=== PATIENT | male | born 1990 | race Caucasian/White ===

== ENCOUNTER 2024-12-31 06:52 | Emergency (ER) | payer BC, SELFPAY ==
[2024-12-31 06:54] VITALS: BMI 31.1
[2024-12-31 06:55] VITALS: BP 144/94; PULSE 111; RESP 19; O2SAT 98
[2024-12-31 06:58] VITALS: TEMP 36.6
--- NOTE | 2024-12-31 07:02 | XR_ITS ---
Examination: CT abdomen and pelvis without contrast. Coronal 3-D reconstructions. Sagittal 2-D reconstructions. Date and time of exam:December 31, 2024, 0730 hours INDICATIONS: Generalized abdominal pain and vomiting beginning today COMPARISON: November 16, 2022 CTDI: vol (mGy): 9.86 DLP: (mGycm): 613 Technique: Axial images of the abdomen have been obtained, 3 mm slice thickness Intravenous contrast material has not been administered. Low dose protocols were performed. One or more of the following dose reduction techniques were used; automated exposure control, adjustment of the mA and/or KV according to patient size, use of iterative reconstruction technique. Findings: No focal liver or splenic lesions Contracted gallbladder No pancreatic or adrenal mass The colon shows diffuse wall thickening and fatty replacement in the vanessa Normal appendix No bowel obstruction No diverticulitis Normal seminal vesicles Contracted urinary bladder. Mild renal parenchymal scar formation The osseous structures are intact IMPRESSION: Findings consistent with multiple prior episodes of diffuse nonspecific colitis Normal appendix No bowel obstruction No renal or ureteral calculi, no hydronephrosis
--- NOTE | 2024-12-31 07:13 | EDNOTE_ITS ---
<Statement entered by Isatu Anderson MD - 12/31/24 17:33> As co-signing physician, I was present and available for consult prn. I concur with the plan and care as documented by the midlevel provider. ED Abdominal Pain RME/HPI General Chief Complaint: Abdominal Pain Stated complaint: ABD PAIN Time seen by provider: 12/31/24 06:57 Arrival date/time: 12/31/24 06:52 34-year-old male with no known medical history presents to the emergency room with a chief complaint of diffuse abdominal pain x 3 weeks Source: patient Mode of arrival: ambulatory Limitations: no limitations Related Data Previous Rx's ?Medication ?Instructions ?Recorded prochlorperazine 25 mg rectal 25 mg FL Q12H PRN nausea and 04/28/21 suppository (Compazine) vomiting #12 ea aluminum-mag hydroxide-simethicone 5 ml PO Q3H PRN dys pepsia #355 mL 01/02/22 200 mg-200 mg-20 mg/5 mL oral susp (Maalox Advanced) hyoscyamine sulfate 0.125 mg 0.125 mg PO QID #30 tabs 01/02/22 sublingual tablet hydrocodone 5 mg-acetaminophen 325 1 tab PO Q6H PRN pa in #14 tabs 11/16/22 mg tablet omeprazole 40 mg capsule,delayed 40 mg PO QDAY #30 cap s 11/16/22 release ondansetron 8 mg disintegrating 8 mg PO Q6HR PRN nause a and 11/16/22 tablet vomiting #20 tabs ondansetron 4 mg disintegrating 4 mg PO Q8H PRN nausea and 12/31/24 tablet vomiting #14 tabs Allergies Allergy/AdvReac Type Severity Reaction Status Date / Time No Known Allergies Allergy Verified 12/31/24 06:53 Review of Systems Review of Systems Systems Reviewed: All systems reviewed, normal except as documented Constitutional Constitutional: Reports system reviewed and no additional complaints, except as documented, Denies fatigue, Denies fever(s), Denies headache(s) and Denies weakness Eyes Eyes: Reports system reviewed and no additional complaints, except as documented, Denies blurry vision and Denies change in vision ENT Ears, Nose, Mouth, and Throat: Reports system reviewed and no additional complaints, except as documented, Denies otalgia, Denies headache(s), Denies nasal congestion, Denies throat swelling and Denies vertigo Cardiovascular Cardiovascular: Reports system reviewed and no additional complaints, except as documented, Denies chest pain, Denies dyspnea and Denies dyspnea on exertion Respiratory Respiratory: Reports system reviewed and no additional complaints, except as documented, Denies chest congestion, Denies cough, Denies dyspnea, Denies dyspnea on exertion and Denies wheezing Gastrointestinal Gastrointestinal: Reports system reviewed and no additional complaints, except as documented, Reports abdominal pain, Reports cramping, Reports nausea and Reports vomiting Genitourinary Genitourinary: Reports system reviewed and no additional complaints, except as documented, Denies dysuria and Denies hematuria Musculoskeletal Musculoskeletal: Reports system reviewed and no additional complaints, except as documented and Denies back pain Integumentary/Breasts Skin/Breast: Reports system reviewed and no additional complaints, except as documented and Denies wounds Neurologic Neurologic: Reports system reviewed and no additional complaints, except as documented, Denies confusion, Denies headache(s), Denies lack of coordination, Denies vertigo and Denies weakness Psychiatric Psychiatric: Reports system reviewed and no additional complaints, except as documented, Denies anxiety, Denies confusion, Denies depression, Denies paranoia, Denies suicidal ideation and Denies tactile hallucinations Endocrine Endocrine: Reports system reviewed and no additional complaints, except as documented and Denies fatigue Hematologic/Lymphatic Hematologic/Lymphatic: Reports system reviewed and no additional complaints, except as documented and Denies lymphadenopathy Allergic/Immunologic Allergic/Immunologic: Reports system reviewed and no additional complaints, except as documented, Denies throat swelling, Denies urticaria and Denies wheezi ng ED Exam General Limitations: Present no limitations General appearance: Present alert and in no apparent distress Head Head exam: Present atraumatic Eye Eye exam: Present normal appearance, PERRL and EOMI ENT ENT exam: Present normal exam, normal oropharynx and mucous membranes moist Neck Neck exam: Present normal inspection, full ROM and trachea midline Chest Chest inspection: Present normal inspection and symmetric chest wall rise Respiratory Respiratory exam: Present normal lung sounds bilaterally Cardiovascular Cardiovascular exam: Present regular rate, normal rhythm and normal heart sounds Abdominal Exam Abdominal exam: Present soft, tenderness and normal bowel sounds; Absent distention, guarding, rebound or rigidity Abdominal tenderness: Present epigastrium and moderate Extremities Exam Extremities exam: Present normal inspection and full ROM Back Exam Back exam: Present normal inspection and full ROM Neurological Exam Neurological exam: Present alert, oriented X3 and CN II-XII intact Psychiatric Psychiatric exam: Present normal affect and normal mood Skin Skin exam: Present warm, dry, intact and normal color Course Quality Measures none Orders Category Date Time Status IV [Insert IV] NOW Care 12/31/24 08:[address] abdomen pelvis wo con Stat Exams 12/31/24 07:02 Completed CBC Stat Lab 12/31/24 08:36 Completed CMP [Comprehensive Metabolic Panel] Stat Lab 12/31/24 08:36 Completed Drug Screen,Urine Stat Lab 12/31/24 07:11 Completed Lipase Stat Lab 12/31/24 08:36 Completed UA [Urinalysis] Stat Lab 12/31/24 07:11 Completed Urine Culture Stat Lab 12/31/24 07:11 Received HYDROcodone*/APAP 5/325 [[place] 5/325] Med 12/31/24 07:02 Discontinued 1 tab PO X1 ONE Metoclopramide Inj [Reglan Inj] Med 12/31/24 08:17 Discontinued 10 mg IVP X1 ONE Metoclopramide [Reglan] Med 12/31/24 07:03 Discontinued 10 mg PO X1 ONE Morphine Inj Med 12/31/24 09:32 Discontinued 4 mg IVP X1 ONE Ondansetron Inj [Zofran Inj] Med 12/31/24 09:32 Discontinued 4 mg IVP X1 ONE Ondansetron Odt [Zofran Odt] Med 12/31/24 07:02 Discontinued 4 mg PO X1 ONE Sodium Chloride 0.9% 1000 ml [Ns] 1,000 ml Med 12/31/24 08:17 Discontinued IV 999 mls/hr mg Hyd/Al Hyd/Radha Susp [Maalox Susp] Med 12/31/24 07:02 Discontinued 30 ml PO X1 ONE Vital Signs Vital signs: Vital Signs Pulse Rate 111 H 12/31/24 06:55 Respiratory Rate 19 12/31/24 06:55 Blood Pressure 144/94 H 12/31/24 06:55 Pulse Oximetry (%) 98 12/31/24 06:55 Oxygen Delivery Method Room Air 12/31/24 06:55 O2 saturation 98% within normal limits Abdominal Pain MDM MDM Narrative MDM Narrative:: 34-year-old male with no known medical history presents to the emergency room with a chief complaint of diffuse abdominal pain x 3 weeks Patient is hemodynamically stable and in no apparent distress. He is afebrile not tachycardic not tachypneic Physical examination shows some diffuse abdominal pain. There is no tenderness to McBurney's point and there is a negative Acosta sign CT of the abdomen and pelvis was negative for any acute findings. It does fine some colitis patterns CBC CMP are within normal limits. Drug screen shows marijuana Patient was discharged and educated to follow-up with primary care provider in the next 24 to 48 hours and return to the emergency room for any evidence of worsening signs or symptoms Patient data External records reviewed:: [facility] previous records Clinical information provided by:: patient Social determinants that could affect healthcare access:: none Patient has the following chronic illnesses:: No chronic illness How is presenting disease/condition affected by chronic disease/condition?: no chronic disease Evaluation data The following diagnostics were reviewed and interpreted by me:: lab results and radiology exam(s) Lab and/or radiology exams considered but not ordered:: Labs and radiology exams considered and ordered Interpretation Summary: CT abdomen and pelvis-Findings: No focal liver or splenic lesions Contracted gallbladder No pancreatic or adrenal mass The colon shows diffuse wall thickening and fatty replacement in the vanessa Normal appendix No bowel obstruction No diverticulitis Normal seminal vesicles Contracted urinary bladder. Mild renal parenchymal scar formation The osseous structures are intact IMPRESSION: Findings consistent with multiple prior episodes of diffuse nonspecific colitis Normal appendix No bowel obstruction No renal or ureteral calculi, no hydronephrosis Medications / Prescriptions Medications or Prescriptions considered but not ordered:: Medication given Medication administrations:: Medication Administration History Discontinued Medications Hydrocodone Bitart/Acetaminophen (Hydrocodone/Apap 5/325 Tablet) 1 tab PO X1 ONE Stop: 12/31/24 07:03 Last Admin: 12/31/24 08:08 Dose: Not Given Documented By: ADRYAN Non-Admin Reason: Nausea Al Hydrox/Mg Hydrox/Simethicone (Mg Hyd/Al Hyd/Radha (Maalox Reg) Susp 30 Ml Udc) 30 ml PO X1 ONE Stop: 12/31/24 07:03 Last Admin: 12/31/24 07:52 Dose: 30 ml Documented By: ADRYAN Sodium Chloride (Ns) 1,000 mls @ 999 mls/hr IV .Q1H1M ONE Stop: 12/31/24 09:17 Last Infusion: 12/31/24 09:50 Dose: Infused Documented By: Admin: 12/31/24 08:48 Dose: 999 mls/hr Documented By: ADRYAN Metoclopramide HCl (Metoclopramide 5 Mg Tablet) 10 mg PO X1 ONE Stop: 12/31/24 07:04 Last Admin: 12/31/24 08:08 Dose: Not Given Documented By: ADRYAN Non-Admin Reason: Nausea Metoclopramide HCl (Metoclopramide Inj 5 Mg/Ml Vial 2 Ml) 10 mg IVP X1 ONE; Protocol Stop: 12/31/24 08:18 Last Admin: 12/31/24 08:48 Dose: 10 mg Documented By: ADRYAN Morphine Sulfate (Morphine Sulf Inj 10 Mg/Ml Vial) 4 mg IVP X1 ONE Stop: 12/31/24 09:33 Last Admin: 12/31/24 09:41 Dose: 4 mg Documented By: MARK Ondansetron HCl (Ondansetron Odt 4 Mg Tabrap) 4 mg PO X1 ONE; Protocol Stop: 12/31/24 07:03 Last Admin: 12/31/24 08:08 Dose: Not Given Documented By: ADRYAN Non-Admin Reason: Nausea Ondansetron HCl (Ondansetron Inj 2 Mg/Ml Inj 2 Ml) 4 mg IVP X1 ONE; Protocol Stop: 12/31/24 09:33 Last Admin: 12/31/24 09:42 Dose: 4 mg Documented By: MARK Medication given Consultations Consultation(s) initiated? (list below): No Diagnosis Differential diagnosis abdominal pain: abdominal pain, acute appendicitis, constipation, gastroenteritis and other (Cannabinoid hyperemesis syndrome) Most likely diagnosis given after review of the tests above:: Cannabinoid hyperemesis syndrome Admission Indicated Admission indicated?: not indicated Admission Request Was there a request for admission?: No Disposition Plan Disposition Plan: Discharge Discharge Attestation Discharge Attestation: The patient and all family members were given an opportunity to ask questions and understood the discharge instructions. Discharge instructions specifically effects, indications for sooner follow up or return to the emergency department, and the expected course of current diagnosis. Patient condition: Stable Discharge Plan Plan Patient Disposition: HOME (Self Care) Discharge Disposition comment: Stable Prescriptions/Referrals Prescriptions/Med Rec: New ondansetron 4 mg tablet,disintegrating 4 mg PO Q8H PRN (Reason: nausea and vomiting) Qty: 14 0RF No Action hyoscyamine sulfate 0.125 mg tablet, sublingual 0.125 mg PO QID Qty: 30 0RF alum-mag hydroxide-simeth [Maalox Advanced] 200-200-20 mg/5 mL suspension 5 ml PO Q3H PRN (Reason: dyspepsia) Qty: 355 0RF prochlorperazine [Compazine] 25 mg suppository 25 mg FL Q12H PRN (Reason: nausea and vomiting) Qty: 12 0RF ondansetron 8 mg tablet,disintegrating 8 mg PO Q6HR PRN (Reason: nausea and vomiting) Qty: 20 0RF omeprazole 40 mg capsule,delayed release(DR/EC) 40 mg PO QDAY Qty: 30 0RF hydrocodone-acetaminophen 5-325 mg tablet 1 tab PO Q6H MDD 4 PRN (Reason: pain) Qty: 14 0RF Referrals: No Primary/Family,Physician [Primary Care Provider] - In 1 week Problem List Clinical Impression: Cannabinoid hyperemesis syndrome Patient/Caregiver Discharge Instructions Education Materials: ED Vomiting (Adult) Additional Instructions: Please follow-up with your primary care provider in the next [address] scan was negative for any acute findings. Your blood work was negative for any acute findings. Medication was sent to your pharmacy please pick it up and take it as indicated For any evidence of worsening signs or symptoms return to the emergency room immediately Print Language: Maori Stand Alone Forms: Valerie Award Info., Patient Portal Info Letter PA/RADIOLOGY SPECIAL PROCEDURE TECH Supervising Physician PA/RADIOLOGY SPECIAL PROCEDURE TECH Supervising Physician: Dr. ANDERSON
[2024-12-31] MEDS: MG HYD/AL HYD/SIME (Maalox Reg) SUSP 30 ML UDC PO (07:52)
[2024-12-31 07:59] VITALS: BP 151/104; PULSE 82; RESP 17; O2SAT 97
[2024-12-31 08:45] LABS: Basophils # (Auto) 0.1 Thou/mm3 (0.0-0.2); Basophils % (Auto) 1 % (0-2.5); Eosinophils # (Auto) 0.1 Thou/mm3 (0.0-0.5); Eosinophils % (Auto) 1 % (0-10); Hematocrit 44.7 % (41.0-53.0); Hemoglobin 15.7 g/dL (13.5-16.0); Immature Granulocytes Auto 0.04 Thou/mm3 (0.00-0.00); Lymphocytes # (Auto) 2.2 Thou/mm3 (1.0-4.8); Lymphocytes % (Auto) 22 % (10-50); Mean Corpuscular HGB Conc 35.1 g/dl (31.0-37.0); Mean Corpuscular Hemoglobin 29.7 pg (25.0-35.0); Mean Corpuscular Volume 85 fL (80-100); Monocytes # (Auto) 0.7 Thou/mm3 (0.0-0.8); Monocytes % (Auto) 7 % (0-12); Neutrophils # (Auto) 6.9 Thou/mm3 (1.8-7.7); Neutrophils % (Auto) 69 % (37-80); Nucleated Red Blood Cell # 0.00 Thou/mm3 (0.00-0.00); Nucleated Red Blood Cell % 0 /100 WBC (0); Platelet Count 342 Thou/mm3 (140-440); RDW Standard Deviation 39.0 fL (35.1-43.9); Red Blood Count 5.28 Miln/mm3 (4.50-5.90); White Blood Count 10.0 Thou/mm3 (3.8-10.6)
[2024-12-31] MEDS: SODIUM CHLORIDE 0.9% 1000 ML 1,000 ML 999 ML IV (08:48)
[2024-12-31] MEDS: METOCLOPRAMIDE INJ 5 MG/ML VIAL 2 ML 10 MG IVP (08:48)
[2024-12-31 08:50] LABS: Collection Type, Urine Clean Catch; Squamous Epithelial Cell,Urine 0 /hpf (0-5)
[2024-12-31 09:01] VITALS: BP 152/96; PULSE 68; RESP 18; TEMP 36.6; O2SAT 97
[2024-12-31 09:03] LABS: Alanine Aminotransferase 14 U/L (10-49); Albumin, Serum 4.5 gm/dL (3.5-5.0); Albumin/Globulin Ratio 1.5 (1.2-2.2); Alkaline Phosphatase 97 U/L (46-116); Anion Gap 10 (7-16); Aspartate Amino Transferase 14 U/L (0-34); BUN/Creatinine Ratio 10 Ratio (12-20); Bilirubin,Total 0.8 mg/dL (0.3-1.2); Blood Urea Nitrogen 12 mg/dL (9-23); Calcium 9.6 mg/dL (8.3-10.6); Calcium (Corrected) 9.6 mg/dL (8.5-10.1); Carbon Dioxide 25.2 mMol/L (20.0-31.0); Chloride 106 mMol/L (98-107); Creatinine (Component) 1.2 mg/dL (0.6-1.3); Estimated Creatinine Clearance 109.3 mL/min (>60); Globulin 3.1 gm/dL (2.3-3.5); Glucose 137 mg/dL (74-106); Lipase 29 U/L (12-53); Osmolality,Calculated 282 (275-295); Potassium 4.0 mMol/L (3.4-5.1); Sodium 141 mMol/L (136-145); Total Protein 7.6 gm/dL (5.7-8.2); eGFR > 60 See Note
[2024-12-31 09:09] LABS: Amorphous Crystals,Urine Present (Absent); Bacteria,Urine Rare; Bilirubin,Urine Negative (Negative); Blood,Urine Negative (Negative); Color,Urine Yellow (Lt Yel-Yel); Glucose, Urine Negative (Negative); Ketones,Urine 1+ (Negative); Leukocyte Esterase,Urine Positive (Negative); Nitrite,Urine Negative (Negative); PH,Urine 6.0 (5.0-7.0); Protein,Urine 1+ (Neg - Trace); RBC,Urine 6 /hpf (0-3); Specific Gravity,Urine 1.035 (1.001-1.035); Urobilinogen,Urine 2.0 mg/dL (0.0-1.0); WBC,Urine 9 /hpf (0-5)
[2024-12-31 09:12] LABS: Amphetamine/Methamp Scrn,U Negative (Negative); Barbiturate Screen,Urine Negative (Negative); Benzodiazepines Screen,Urine Negative (Negative); Benzoylecgonine Screen, Ur Negative (Negative); Fentanyl Screen,Urine Negative (Negative); Opiate Screen,Urine Negative (Negative); THC Screen,Urine Positive (Negative)
[2024-12-31 09:41] LABS: Clarity,Urine Hazy (Clear/Hazy)
[2024-12-31] MEDS: MORPHINE SULF INJ 10 MG/ML VIAL 4 MG IVP (09:41)
[2024-12-31] MEDS: ONDANSETRON INJ 2 MG/ML INJ 2 ML 4 MG IVP (09:42)
== END 2024-12-31 10:17 | disposition home or self-care (01) ==
PROVIDERS: Nurse Practitioner Family; Emergency Provider Emergency Medicine
DX: R11.10 Vomiting, unspecified (principal); F12.90 Cannabis use, unspecified, uncomplicated; R10.84 Generalized abdominal pain
CPT/HCPCS: 36415; 74176; 80053; 80307; 81001; 83690; 85025; 87086; 96361; 96374; 96375; 99283; J2270; J2405; J2765; J7030; A9270